=== PATIENT | male | born 1995 | race Caucasian/White ===

== ENCOUNTER → 2020-02-05 13:22 | Outpatient (CLI) | payer OTHER, MEDICAID, SELFPAY ==
--- NOTE | 2020-02-05 13:24 | DI.RAD.S_ITS ---
PROCEDURE: XR FOREARM RT 2V INDICATIONS: direct blow to forearm. distal wrist pain with mvmt TECHNIQUE: 2 views of the forearm were acquired. COMPARISON: [facility], , XR WRIST RT MIN 3V, 02/05/2020, 12:24. FINDINGS: Bones: No fractures or dislocations. No suspicious bony lesions. Soft tissues: No suspicious soft tissue calcifications or masses. IMPRESSION: No acute fractures of the right forearm. Dictated by: Handy Diaz M.D. on 02/05/2020 at 13:16 Approved by: Handy Diaz M.D. on 02/05/2020 at 13:17
--- NOTE | 2020-02-05 13:24 | DI.RAD.S_ITS ---
PROCEDURE: XR WRIST RT MIN 3V INDICATIONS: direct blow to forearm. distal wrist pain with mvmt TECHNIQUE: 4 views of the wrist were acquired. COMPARISON: [facility], , XR FOREARM RT 2V, 02/05/2020, 12:22. FINDINGS: Bones: No fractures or dislocations. No suspicious bony lesions. Soft tissues: No suspicious soft tissue calcifications. IMPRESSION: No acute osseous abnormalities of the right wrist. Dictated by: Handy Diaz M.D. on 02/05/2020 at 13:17 Approved by: Handy Diaz M.D. on 02/05/2020 at 13:17
== END ==
PROVIDERS: PCP Family Medicine; Referring Provider Physician Assistant; Visit Provider Physician Assistant
DX: M25.531 Pain in right wrist (principal); S69.91XA Unspecified injury of right wrist, hand and finger(s), initial encounter; W22.8XXA Striking against or struck by other objects, initial encounter
CPT/HCPCS: 73090; 73110